=== PATIENT | male | born 1970 | race African-American/Black ===

== ENCOUNTER 2019-07-24 17:42 | Emergency (ER) | payer SELFPAY ==
[~2019-07-24] VITALS: Ht 177.8 cm; Wt 74.8 kg
[2019-07-24 17:45] VITALS: BP_SYST 134
[2019-07-24] MEDS ORDERED: IBUPROFEN 800 MG TABLET PO ONE (18:15)
[2019-07-24] MEDS ORDERED: KETOROLAC TROMETHAMINE 30 MG VIAL IM ONE (19:15)
[2019-07-24 19:58] VITALS: BP_SYST 134
== END 2019-07-24 19:58 | disposition home or self-care (01) ==
LOC: SED 17:42
DX: S16.1XXA Strain of muscle, fascia and tendon at neck level, initial encounter (principal); S39.012A Strain of muscle, fascia and tendon of lower back, initial encounter; V89.2XXA Person injured in unspecified motor-vehicle accident, traffic, initial encounter; Y93.89 Activity, other specified; Y92.413 State road as the place of occurrence of the external cause; Y99.8 Other external cause status; M25.562 Pain in left knee; M25.561 Pain in right knee
CPT/HCPCS: 72040; 72100; 73564; 96372; 99283; J1885